=== PATIENT | female | born 1965 | race Caucasian/White ===

== ENCOUNTER → 2017-06-25 17:33 | Outpatient (CLI) | payer OTHER, SELFPAY ==
--- NOTE | 2017-06-25 17:36 | CT_ITS ---
STUDY: CT MAXILLOFACIAL SINUSES REASON FOR EXAM: Female, 51 years old. Chronic drainage and pressure. Sinusitis. RADIATION DOSAGE (If Supplied By Facility): CTDIvol = ( 33.45 ) mGy, DLP = ( 822.36 ) mGycm TECHNIQUE: The patient was scanned in a multi detector CT scanner. High resolution axial imaging was performed without the administration of intravenous contrast material. Sagittal and coronal images were reconstructed. Individualized dose optimization techniques were used for this CT. COMPARISON: None. FINDINGS: FRONTAL SINUSES: Mild mucosal thickening in the left frontal sinus. Normal right frontal sinus. ETHMOIDAL SINUSES: Moderate mucosal thickening in the ethmoid sinuses. There is air-fluid level in the left posterior ethmoid sinus. MAXILLARY SINUSES: Hypoplastic right maxillary sinus. Mucosal thickening in both maxillary sinuses. There is air-fluid level in the left maxillary sinus. SPHENOIDAL SINUSES: Moderate mucosal thickening in the right sphenoid sinus. Minimal mucosal thickening in the floor the left sphenoid sinus. Patent right mattery ostium but there is obstruction of the right infundibulum due to mucosal thickening. Patent right lateral nasal wall. Obstructed left maxillary ostium and left infundibulum due to mucosal thickening. Normal left lateral nasal wall. Normal bilateral middle turbinates. Normal bilateral inferior turbinates. Normal midline nasal septum. There is patency of the bilateral nasal airways. The visualized osseous structures are normal. The visualized bilateral orbital contents are normal. Mucosal edema in the right temporal mastoid bone is noncoalescent. Normal left temporal mastoid bone. CT/Sinus/Facial Bone IMPRESSION: 1. Mild chronic pansinusitis with suspicious superimposed acute sinusitis due to air-fluid level in the left posterior ethmoid sinus and left maxillary sinus. 2. Noncoalescent type of mucosal edema in the right temporal mastoid bone. 3. Midline nasal septum with no obstructing lesions along the nasal vault. 4. Bilaterally obstructed ostiomeatal units due to mucosal thickening along the right infundibulum, the left Anna ostium and left infundibulum. 5. 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 Electronically Signed: Say Sherwood MD at 10:22 EST , Service support ,
== END ==
PROVIDERS: Family Provider Family Medicine; PCP Family Medicine; Visit Provider Otolaryngology
DX: J32.9 Chronic sinusitis, unspecified (principal)
CPT/HCPCS: 70486

== ENCOUNTER → 2017-07-09 17:21 | Outpatient (CLI) | payer OTHER, SELFPAY | PROVIDERS: Family Provider Family Medicine; PCP Family Medicine; Visit Provider Otolaryngology | DX: J32.9 Chronic sinusitis, unspecified (principal) | CPT/HCPCS: 87070; 87205 ==

== ENCOUNTER → 2017-08-06 15:52 | Outpatient (CLI) | payer OTHER, SELFPAY | PROVIDERS: Family Provider Family Medicine; PCP Family Medicine; Visit Provider Otolaryngology | DX: J32.9 Chronic sinusitis, unspecified (principal) | CPT/HCPCS: 87070; 87077; 87205 ==

== ENCOUNTER → 2017-09-04 18:16 | Outpatient (CLI) | payer OTHER, SELFPAY | PROVIDERS: Family Provider Family Medicine; PCP Family Medicine; Visit Provider Otolaryngology | DX: J32.9 Chronic sinusitis, unspecified (principal) | CPT/HCPCS: 87070; 87077; 87186; 87205 ==

== ENCOUNTER → 2019-11-02 11:09 | Outpatient (CLI) | payer OTHER, SELFPAY ==
--- NOTE | 2019-11-02 11:32 | EKG12_ITS ---
Test Reason : PREOP Blood Pressure : / mmHG Vent. Rate : 074 BPM Atrial Rate : 074 BPM P-R Int : 154 ms QRS Dur : 092 ms QT Int : 366 ms P-R-T Axes : 059 -44 035 degrees QTc Int : 406 ms Normal sinus rhythm Left axis deviation Abnormal ECG No previous ECGs available Confirmed by FAUSTINO REEVES, BLUE ([id number]), movie editor MATT JACOB ([id number] on 11/07/2019 11:38:44 AM Referred By: Loretta Beckham Confirmed By:BLUE HARMON MD
[2019-11-02 13:14] LABS: Absolute Lymphocyte Count 2.18 X10^3/uL (0.83-4.51); Basophil# 0.07 X10^3/uL; Eosinophil# 0.09 X10^3/uL; Eosinophils% 1.3 % (0-5); Hematocrit 47.2 % (37-47); Hemoglobin 15.3 g/dL (12.0-15.0); Lymphocyte # 2.18 X10^3/ul (4.0); Lymphocyte % 32.1 % (19-41); Mean Corp Hgb Conc 32.4 g/dL (32-36); Mean Corpuscular Hgb 31.1 pg (27.0-32.0); Mean Corpuscular Volume 95.9 fL (81-99); Mean Platelet Vol. 10.8 fl (6.2-12.0); Monocyte# 0.47 X10^3/uL; Monocyte% 6.9 % (0-10); NRBC Flagged by Analyzer 0 % (0-5); Neutrophil # 3.96 X10^3/uL (2.7-7.7); Neutrophil % 58.4 % (47-70); Platelet Count 300 K/mm3 (150-450); RBC Distribution Width CV 12.7 % (11.6-14.6); Red Blood Count 4.92 M/mm3 (4.2-5.4); White Blood Count 6.8 K/mm3 (4.4-11.0)
[2019-11-02 13:47] LABS: Anion Gap 7 (5-15); BUN 22 mg/dL (7-18); BUN/Creat Ratio 22.9 RATIO (10-20); Calcium,Total 9.4 mg/dL (8.5-10.1); Chloride 105 mmol/L (98-107); Creatinine, Serum 0.96 mg/dL (0.55-1.02); EST Glomerular Filtration Rate 64 mL/min (>60); Est Glom Filt Rate - Afr Amer 78 mL/min (>60); Glucose 89 mg/dL (74-106); Potassium 4.2 mmol/L (3.5-5.1); Sodium Level 140 mmol/L (136-145)
== END ==
PROVIDERS: PCP Family Medicine; Referring Provider Registered Nurse; Visit Provider Registered Nurse
DX: Z01.810 Encounter for preprocedural cardiovascular examination (principal); Z01.818 Encounter for other preprocedural examination
CPT/HCPCS: 36415; 80048; 85025; 93005

== ENCOUNTER → 2019-11-04 12:01 | Outpatient (CLI) | payer OTHER, SELFPAY | PROVIDERS: PCP Family Medicine; Visit Provider Orthopaedic Surgery | DX: Z11.59 Encounter for screening for other viral diseases (principal) | CPT/HCPCS: 87635; G2023; U0003 ==